=== PATIENT | male | born 1985 | race Caucasian/White ===

== ENCOUNTER → 2024-06-02 | Outpatient (CLI) | payer SELFPAY ==
--- NOTE | 2024-06-02 13:57 | ECHOCS_ITS ---
Reason For Study: PALPS Procedure This was a 2D Doppler, Color Flow transthoracic echocardiogram. The study was technically difficult. Contrast injection was performed. Exam performed in department. Left Ventricle Normal LV size. The estimated ejection fraction is 60 %. No evidence for diastolic dysfunction. No regional wall motion abnormalities noted. Right Ventricle Normal RV size. Normal systolic function. Atria The left and right atria are normal. No doppler evidence for ASD. Mitral Valve There is no mitral valve stenosis. No mitral valve insufficiency. Tricuspid Valve There is no tricuspid stenosis. Unable to estimate RV systolic pressure due to inadequate jet, pulmonary artery pressure probably normal. Aortic Valve Trisinus/trileaflet aortic valve. There is no aortic stenosis. No aortic valve insufficiency. Pulmonic Valve There is no pulmonic valvular stenosis. No pulmonic valve insufficiency. Great Vessels Normal aortic root. Pericardium/Pleural No pericardial effusion. Medication 22 gauge I.V. with prn adaptor inserted into right arm. Diluted definity 2ml given slow IV push to enhance endocardial definition. MMode/2D Measurements & Calculations LVIDd: 5.0 cm IVSd: 0.99 cm LVOT diam: 2.4 cm LVIDs: 3.7 cm LVPWd: 0.91 cm FS: 26.9 % LVOT area: 4.4 cm2 LAV(MOD-bp): 36.4 ml LVAd ap4: 38.1 cm2 SV(MOD-sp4): 79.5 ml LAV(MOD-bp) Indexed: 16.9 ml/m2 LVLd ap4: 8.4 cm SI(MOD-sp4): 36.9 ml/m2 LAV(MOD-sp2): 34.4 ml EDV(MOD-sp4): 143.6 ml LAV(MOD-sp4): 34.6 ml EDV(sp4-el): 146.8 ml LVAs ap4: 23.5 cm2 LVLs ap4: 7.1 cm ESV(MOD-sp4): 64.1 ml ESV(sp4-el): 66.3 ml EF(MOD-sp4): 55.4 % EF(sp4-el): 54.8 % SV(sp4-el): 80.5 ml LA A4 area: 15.0 cm2 LA dimension(2D): 3.0 cm RA A4 area: 14.5 cm2 Time Measurements MV dec time: 0.18 sec Doppler Measurements & Calculations MV E max dayday: 67.3 cm/sec Lat Peak E' Dayday: 14.1 cm/sec Med Peak E' Dayday: 9.2 cm/sec MV A max dayday: 69.9 cm/sec E/E' lat: 4.8 E/E' med: 7.3 MV E/A: 0.96 MV V2 max: 70.1 cm/sec MV dec slope: 375.1 cm/sec2 Ao V2 max: 100.9 cm/sec MV max P.0 mmHg Ao max P.1 mmHg MV V2 mean: 43.8 cm/sec Ao V2 mean: 66.1 cm/sec MV mean P.86 mmHg Ao mean P.1 mmHg MV V2 VTI: 19.5 cm Ao V2 VTI: 21.1 cm MVA(VTI): 4.6 cm2 AV (velocity ratio): 0.95 DEANNE(I,D): 4.2 cm2 DEANNE(V,D): 4.2 cm2 LV V1 max: 95.2 cm/sec SV(LVOT): 88.7 ml PA V2 max: 100.2 cm/sec LV V1 max P.6 mmHg PA V2 mean: 67.3 cm/sec LV V1 mean P.8 mmHg LV V1 mean: 62.0 cm/sec LV V1 VTI: 20.1 cm ECHO/Echo Complete W/ Contrast Interpretation Summary The estimated ejection fraction is 60 %. No evidence for diastolic dysfunction. Ordering Physician: Lucia Flores Referring Physician: Lucia Flores Performed By: Dayana Thompson RCS
== END | disposition home or self-care (01) ==
LOC: CVS 13:54
PROVIDERS: PCP Nurse Practitioner Family; Referring Provider Nurse Practitioner Family; Visit Provider Nurse Practitioner Family
DX: R00.2 Palpitations (principal)
CPT/HCPCS: 93306; Q9957; A4216; C8929